=== PATIENT | female | born 1980 | race Caucasian/White ===

== ENCOUNTER 2016-09-08 16:43 | Emergency (ER) | payer OTHER ==
[2016-09-08] MEDS ORDERED: METHOCARBAMOL 750 MG TAB PO ONE ×2 (18:38)
--- NOTE | 2016-09-08 18:43 | EDPHY ---
H & P Time Seen by Provider: 09/08/16 17:48 HPI/ROS: CHIEF COMPLAINT: low back pain HISTORY OF PRESENT ILLNESS: 35-year-old female presents emergency department complaining of low back pain. Patient had a recent MRI of her L-spine showing a herniated disc at L5-S1. She is seeing Dr. Abarca. Patient started meloxicam 3 days ago, she presents today for worsening pain. Patient reports pain down her left leg that stops at her ankle, no leg weakness, no loss of control of her bowel or bladder, no saddle anesthesias, no fevers. Patient reports pain is worse in the morning. REVIEW OF SYSTEMS: A comprehensive 10 point review of systems is otherwise negative aside from elements mentioned in the history of present illness. Smoking Status: Current every day smoker Physical Exam: Physical Exam Gen: Alert and Oriented, NAD HEENT: PERRL, moist mucous membranes NECK: no meningismus CV: regular rate and regular rhythm PULM: CTAB, no wheezes ABDOMEN: soft, non tender to palpation, BS present BACK: Midline low lumbar tenderness to palpation, left-sided SI joint tenderness NEURO: Neurologically grossly intact, 2/4 deep tendon reflexes patellar and Achilles EXTREMITIES: normal appearing SKIN: no rash or break in skin on exposed skin PSYCH: answers questions appropriately. Constitutional: Initial Vital Signs Temperature (C) 36.8 C 09/08/16 16:55 Heart Rate 82 09/08/16 16:55 Respiratory Rate 16 09/08/16 16:55 Blood Pressure 137/86 H 09/08/16 16:55 O2 Sat (%) 97 09/08/16 16:55 O2 Delivery Mode Room Air Allergies/Adverse Reactions: Penicillins Allergy (Intermediate, Verified 09/08/16 17:05) "violent vomiting" Home Medications: Medication Instructions Recorded Acetaminophen [Tylenol ES 500 mg 500 mg PO Q6 09/08/16 (*)] Citalopram [CeleXA] 20 mg PO 09/08/16 Meloxicam [Mobic 15 mg] 15 mg PO 09/08/16 Methocarbamol [Robaxin-750] 750 - 1,500 mg PO QID PRN #20 09/08/16 tablet Medical Decision Making ED Course/Re-evaluation: Patient has no evidence of cauda equina syndrome or spinal abscess. She is given Robaxin in the emergency department and a prescription for more. I have recommended that she follow up with physical therapy as soon as possible and neurosurgery for further recommendations and a possible epidural steroid injection. Patient is given strict return precautions for any neurovascular compromise. Differential Diagnosis: The differential diagnosis for the patient's back pain included but was not limited to musculo-skeletal pain, epidural abscess, herniated disk, spinal fracture, cauda equina and intra-abdominal causes including urinary system. Departure - Departure Disposition: Home, Routine, Self-Care Clinical Impression: Left lumbar radiculitis Condition: Good Instructions: Lumbar Disc Herniation (ED), Core Strengthening Exercises (ED) Additional Instructions: Continue taking your meloxicam as prescribed, take 750 mg of Robaxin every 8 hours as needed for muscle spasms. Ice or heat whichever feels better, start core strengthening exercises. Follow up with a physical therapist as soon as possible. Follow up with the neurosurgeon at 1st available appointment, call Dr. Abarca in the am to arrange for epidural steroid injection. Return to the emergency department for any loss of control of your bowel or bladder is, numbness to your groin, fevers, any other questions or concerns. Referrals: Toño Abarca MD [Primary Care Provider] - As per Instructions Prescriptions: Methocarbamol [Robaxin-750] 750 - 1,500 mg PO QID PRN #20 tablet PRN Reason: Spasms
[2016-09-08 19:25] VITALS: BP 112/74; PULSE 74; RESP 18; TEMP 97.5; O2SAT 96
== END 2016-09-08 19:25 | disposition home or self-care (01) ==
DX: M54.16 Radiculopathy, lumbar region (principal); F17.200 Nicotine dependence, unspecified, uncomplicated

== ENCOUNTER → 2016-09-12 | Day surgery (SDC) | payer OTHER ==
[~2016-09-12] MED LIST: IOPAMIDOL (ISOVUE-M 300) 15 ML VIAL IV ONE; LIDOCAINE 1% 30 ML SDV ONE; TRIAMCINOLONE ACETONIDE 200 MG/5 ML MDV IM ONE
== END | disposition home or self-care (01) ==
LOC: FIMAGING 13:50
PROVIDERS: ATTEND Family Medicine
PROC: 3E0S3BZ Introduction of Anesthetic Agent into Epidural Space, Percutaneous Approach (ICD-10-PCS; principal; 2016-09-12)
PROC: 3E0S33Z Introduction of Anti-inflammatory into Epidural Space, Percutaneous Approach (ICD-10-PCS; principal; 2016-09-12)
DX: M54.17 Radiculopathy, lumbosacral region (principal); M51.27 Other intervertebral disc displacement, lumbosacral region; F17.200 Nicotine dependence, unspecified, uncomplicated; Z88.0 Allergy status to penicillin
CPT/HCPCS: J3301; Q9967